=== PATIENT | female | born 1970 | race Two or more races ===

== ENCOUNTER 2022-04-13 19:56 | Emergency (ER) | payer OTHER | END 2022-04-13 21:44 | disposition left against medical advice (07) | LOC: EMS 19:57 | DX: Z53.21 Procedure and treatment not carried out due to patient leaving prior to being seen by health care provider (principal) | CPT/HCPCS: 99281; Z7502 ==

== ENCOUNTER 2023-09-29 09:49 | Emergency (ER) | payer OTHER ==
[~2023-09-29] VITALS: Ht 162.6 cm; Wt 72.7 kg
[2023-09-29 10:02] VITALS: BP 162/80; PULSE 72; RESP 18; TEMP 98
[2023-09-29] MEDS: IBUPROFEN 600 MG TABLET PO ONE (13:43)
[2023-09-29] MEDS: ONDANSETRON HCL 4 MG TABLET PO ONE (13:43)
[2023-09-29] MEDS ORDERED: IBUP-1492 PO (13:46)
== END 2023-09-29 14:06 | disposition home or self-care (01) ==
LOC: EMS 09:49
DX: S09.90XA Unspecified injury of head, initial encounter (principal); I10 Essential (primary) hypertension; F17.210 Nicotine dependence, cigarettes, uncomplicated; W22.8XXA Striking against or struck by other objects, initial encounter; Y93.89 Activity, other specified; Y92.89 Other specified places as the place of occurrence of the external cause; Y99.8 Other external cause status
CPT/HCPCS: 99284; 70450; Q0162

== ENCOUNTER 2024-05-08 10:44 | Emergency (ER) | payer OTHER ==
[~2024-05-08] VITALS: Ht 165.1 cm; Wt 68.2 kg
[~2024-05-08 10:44] MED LIST: IBUP-1492 PO
[2024-05-08] MEDS ORDERED: CLON-592 PO (10:54)
[2024-05-08 10:57] VITALS: TEMP 97.5
[2024-05-08] MEDS: IBUPROFEN 400 MG TABLET PO ONE (11:51)
[2024-05-08] MEDS: METHOCARBAMOL 500 MG TABLET PO ONE (11:51)
[2024-05-08] MEDS: ACETAMINOPHEN 500 MG TABLET PO ONE (11:52)
[2024-05-08] MEDS ORDERED: CLON1TAB12 PO (12:26)
[2024-05-08] MEDS ORDERED: QUET100T34 PO (12:26)
[2024-05-08] MEDS ORDERED: VILO100C PO (12:26)
[2024-05-08 12:30] VITALS: BP 118/70; PULSE 81; RESP 18; O2SAT 98
== END 2024-05-08 12:50 | disposition home or self-care (01) ==
LOC: EMS 10:45
DX: S00.81XA Abrasion of other part of head, initial encounter (principal); I10 Essential (primary) hypertension; E78.00 Pure hypercholesterolemia, unspecified; F17.210 Nicotine dependence, cigarettes, uncomplicated; V49.40XA Driver injured in collision with unspecified motor vehicles in traffic accident, initial encounter; Y93.89 Activity, other specified; Y92.89 Other specified places as the place of occurrence of the external cause; Y99.8 Other external cause status
CPT/HCPCS: 99284; Z7502; Z7610